=== PATIENT | male | born 1985 | race Caucasian/White ===

== ENCOUNTER 2017-02-20 12:05 | Emergency (ER) | payer BC ==
[~2017-02-20] VITALS: Ht 165.1 cm; Wt 86.8 kg
[2017-02-20 12:07] VITALS: TEMP 37.1; Ht 165.1 cm; Wt 86.8 kg
[2017-02-20] MEDS ORDERED: ASPIRIN 81 MG CHEW PO STA (12:32)
[2017-02-20 12:41] LABS: BASO % 0.3 %; BASO ABS # 0.02 K/uL (0-0.2); COMPLETE YES; EOS % 0.3 %; HEMATOCRIT 47.5 % (42-52); IG% 0.2 %; LYMPH % 23.7 %; LYMPH ABS # 1.45 K/uL (1.2-3.4); MEAN CELL VOLUME 86.8 fL (80-100); MEAN CORPUSCULAR HGB CONC 36.8 g/dl (32-36); MONO % 4.3 %; NEUT % 71.2 %; PLATELET COUNT 238 K/uL (130-400); RED BLOOD COUNT 5.47 M/uL (4.7-6.1); WHITE BLOOD COUNT 6.11 K/uL (4.8-10.8)
--- NOTE | 2017-02-20 12:46 | EMERGENCY ROOM VISIT NOTE ---
History Report prepared by Jaime: Sahil Montemayor Under the Supervision of: Dr. Malini Merino M.D. First contact with patient: 12:29 Chief Complaint: CHEST PAIN Stated Complaint: CHEST PAIN, L SIDE, ARM GOING NUMB, ANXIETY Nursing Triage Summary: Patient c/o of intermittent chest pain since 8:30 am. Denies n/v/d/fevers. Patient states "My dad had his first heart attacK when he was in his 20's." History of Present Illness The patient is a 31 year old male who presents to the Emergency Room with complaints of constant chest pain beginning this morning. The patient notes that his chest pain woke him up this morning at 0830. He reports that the pain is in the center of his chest and is in his left upper chest. He reports mild numbness in his arms. He notes that his chest pain does not change with a change in position and gets better with exertion. The patient states that his father had a heart attack when he was in his 20s. He denies any back pain, nausea, illnesses, pain with breathing. He also denies any previous medical conditions as well as smoking or coffee consumption. He reports that he drinks occasionally. Source of History: patient Onset: this morning Position: chest (center and LUQ) Timing: constant Modifying Factors (Relieving): movement Associated Symptoms: No nausea, No back pain Note: he denies any previous illnesses or pain with breathing Review of Systems See HPI for pertinent positives & negatives. A total of 10 systems reviewed and were otherwise negative. Past Medical & Surgical No pertinent medical or surgical history stated Family History FH: myocardial infarction Social History Smoking Status: Former Smoker Smokeless Tobacco Use: No Alcohol Use: occasionally Marital Status: in relationship Housing Status: lives with family Occupation Status: employed Current/Historical Medications Scheduled Carbamazepine (Tegretol), 200 MG PO BID Scheduled PRN Ranitidine Hcl (Zantac), 150 MG PO BID PRN for gastritis Allergies Coded Allergies: Pertussis Vaccine (Unverified Allergy, Unknown, UNKNOWN, 02/20/17) Physical Exam Vital Signs Date Time Temp Pulse Resp B/P (MAP) Pulse Ox O2 Delivery O2 Flow Rate FiO2 02/20/17 14:35 82 22 141/87 99 Room Air 02/20/17 13:19 92 16 128/98 100 Room Air 02/20/17 13:01 92 02/20/17 12:12 100 Room Air 10/15/17 12:07 37.1 102 18 186/109 100 Room Air Physical Exam Vital signs reviewed. General: Well-appearing 31 yo male, in no significant distress. HEENT: No scleral icterus, PERRLA, neck supple. Atraumatic. Cardiovascular: Regular rate and rhythm, no extra sounds. Pulmonary: Clear to auscultation bilaterally, normal work of breathing. Abdomen: Soft, nontender, nondistended, positive bowel sounds. Musculoskeletal: Atraumatic, no peripheral edema. Neurologic: Patient awake alert and oriented x 3 Skin: Warm, dry, no rash Medical Decision & Procedures ER Provider Diagnostic Interpretation: Radiology results as stated below per my review and radiologist interpretation: CHEST ONE VIEW PORTABLE HISTORY: Left-sided chest pain COMPARISON: Chest 06/27/2015. FINDINGS: The lungs are clear. Cardiac silhouette is normal in size. No pleural effusions. No pneumothorax. IMPRESSION: No acute process. Electronically signed by: Miguel Sun M.D. 02/20/2017 12:57 PM Laboratory Results 02/20/17 12:20 Red Blood Count 5.47, Mean Corpuscular Volume 86.8, Mean Corpuscular Hemoglobin 32.0, Mean Corpuscular Hemoglobin Concent 36.8, Mean Platelet Volume 10.0, Neutrophils (%) (Auto) 71.2, Lymphocytes (%) (Auto) 23.7, Monocytes (%) (Auto) 4.3, Eosinophils (%) (Auto) 0.3, Basophils (%) (Auto) 0.3, Neutrophils # (Auto) 4.35, Lymphocytes # (Auto) 1.45, Monocytes # (Auto) 0.26, Eosinophils # (Auto) 0.02, Basophils # (Auto) 0.02 02/20/17 12:20 Test 02/20/17 12:20 02/20/17 14:05 White Blood Count 6.11 K/uL (4.8-10.8) Red Blood Count 5.47 M/uL (4.7-6.1) Hemoglobin 17.5 g/dL (14.0-18.0) Hematocrit 47.5 % (42-52) Mean Corpuscular Volume 86.8 fL (80-100) Mean Corpuscular Hemoglobin 32.0 pg (25-34) Mean Corpuscular Hemoglobin Concent 36.8 g/dl (32-36) Platelet Count 238 K/uL (130-400) Mean Platelet Volume 10.0 fL (7.4-10.4) Neutrophils (%) (Auto) 71.2 % Lymphocytes (%) (Auto) 23.7 % Monocytes (%) (Auto) 4.3 % Eosinophils (%) (Auto) 0.3 % Basophils (%) (Auto) 0.3 % Neutrophils # (Auto) 4.35 K/uL (1.4-6.5) Lymphocytes # (Auto) 1.45 K/uL (1.2-3.4) Monocytes # (Auto) 0.26 K/uL (0.11-0.59) Eosinophils # (Auto) 0.02 K/uL (0-0.5) Basophils # (Auto) 0.02 K/uL (0-0.2) RDW Standard Deviation 39.5 fL (36.4-46.3) RDW Coefficient of Variation 12.4 % (11.5-14.5) Immature Granulocyte % (Auto) 0.2 % Immature Granulocyte # (Auto) 0.01 K/uL (0.00-0.02) Anion Gap 10.0 mmol/L (3-11) Est Creatinine Clear Calc Drug Dose 92.7 ml/min Estimated GFR () 95.4 Estimated GFR (Non- 82.3 BUN/Creatinine Ratio 9.3 (10-20) Calcium Level 9.6 mg/dl (8.5-10.1) Total Bilirubin 0.4 mg/dl (0.2-1) Direct Bilirubin < 0.1 mg/dl (0-0.2) Aspartate Amino Transf (AST/SGOT) 14 U/L (15-37) Alanine Aminotransferase (ALT/SGPT) 26 U/L (12-78) Alkaline Phosphatase 102 U/L (45-117) Total Creatine Kinase 107 U/L (39-308) Creatine Kinase MB < 0.5 ng/ml (0.5-3.6) Creatine Kinase MB Ratio (0-3.0) Total Protein 8.3 gm/dl (6.4-8.2) Albumin 4.3 gm/dl (3.4-5.0) Lipase 152 U/L (73-393) Bedside Troponin I < 0.030 ng/ml (0-0.045) Laboratory results per my review. Medications Administered Medications (Trade) Dose Ordered Sig/[place] Route Start Time Stop Time Status Last Admin Dose Admin Aspirin (Aspirin Chew) 324 mg NOW STAT PO 02/20/17 12:32 02/20/17 12:34 DC 02/20/17 13:19 324 MG ECG Indication: chest pain Rate (beats per minute): 94 Rhythm: normal sinus, other (sinus arrhythmia) Findings: no acute ischemic change, no ectopy ED Course 1230: Past medical records reviewed. The patient was evaluated in room A3. A complete history and physical examination was performed. 1232: Aspirin 324mg PO 1537: Upon reevaluation, the patient appeared to have improvement of his symptoms. I discussed findings with him. He verbalized agreement of the treatment plan. The patient was discharged home. Medical Decision Differential diagnosis: Etiologies such as cardiac ischemia, aortic dissection, pulmonary embolism, pneumonia, pneumothorax, musculoskeletal, infections, pericarditis, myocarditis , esophageal rupture, gastrointestinal, as well as others were entertained. This pt was evaluated and appeared to be in no distress. IV access was obtained and lab work was drawn. Pt was placed on the cardiac rehabilitation program director. EKG reveals no acute ischemia. CXR is clear. Lab work revelas negative cardiac enzymes. Pt did receive ASA on evaluation. A repeat trop was performed and is negative. Pt was advised of the findings. He was given a Rx for zantac 150 mg BID prn and will follow up with PCP. He was advised of the elevated fasting BG and need for repeat lab work. He will return to the ED for worsening of symptoms or any medical concerns. Medication Reconcilliation Current Medication List: was personally reviewed by me Blood Pressure Screening Patient's blood pressure: Elevated blood pressure Blood pressure disposition: Referred to PCP Impression Primary Impression: Precordial chest pain Additional Impression: Hyperglycemia Scribe Attestation The scribe's documentation has been prepared under my direction and personally reviewed by me in its entirety. I confirm that the note above accurately reflects all work, treatment, procedures, and medical decision making performed by me. Departure Information Dispostion Home / Self-Care Prescriptions Ranitidine Hcl (ZANTAC) 150 Mg Tab 150 MG PO BID Y for gastritis, #30 TAB Prov: Malini Merino M.D. 02/20/17 Referrals No Doctor, Assigned (PCP) Forms HOME CARE DOCUMENTATION FORM, IMPORTANT VISIT INFORMATION Patient Instructions My [facility] [place] Interactive Additional Instructions Diagnosis: Chest pain, hyperglycemia Zantac 150 mg twice daily as needed for gastritis Avoid excessive caffiene and alcohol. Follow-up with your physician this week for reevaluation. HAVE BLOOD SUGAR REPEATED. Return to the ER for worsening of symptoms or any medical concerns. Problem Qualifiers
[2017-02-20 12:55] LABS: ALT/SGPT 26 U/L (12-78); AST/SGOT 14 U/L (15-37); BLOOD UREA NITROGEN 11 mg/dl (7-18); BUN/CREATININE RATIO 9.3 (10-20); CALCIUM 9.6 mg/dl (8.5-10.1); CARBON DIOXIDE 25 mmol/L (21-32); CHLORIDE 105 mmol/L (98-107); CREATININE 1.18 mg/dl (0.60-1.40); GLUCOSE 144 mg/dl (70-99); POTASSIUM 3.7 mmol/L (3.5-5.1); SODIUM 140 mmol/L (136-145)
--- NOTE | 2017-02-20 12:59 | DIAGNOSTIC IMAGING REPORT ---
CHEST ONE VIEW PORTABLE HISTORY: Left-sided chest pain COMPARISON: Chest 06/27/2015. FINDINGS: The lungs are clear. Cardiac silhouette is normal in size. No pleural effusions. No pneumothorax. IMPRESSION: No acute process. Electronically signed by: Miguel Sun M.D. 02/20/2017 12:57 PM Dictated Date/Time: 02/20/2017 12:57 PM
[2017-02-20 13:00] LABS: ALKALINE PHOSPHATASE 102 U/L (45-117)
[2017-02-20] MEDS ORDERED: CARB200T PO (13:04)
[2017-02-20] MEDS ORDERED: RANI150T3 PO (14:01)
[2017-02-20 14:35] VITALS: BP 141/87; PULSE 82; O2SAT 99
== END 2017-02-20 14:50 | disposition home or self-care (01) ==
LOC: C.EDB 12:06 → C.EDA 14:50
DX: R07.2 Precordial pain (principal); R73.9 Hyperglycemia, unspecified; Z87.891 Personal history of nicotine dependence; Z79.899 Other long term (current) drug therapy; Z88.8 Allergy status to other drugs, medicaments and biological substances; Z82.49 Family history of ischemic heart disease and other diseases of the circulatory system